=== PATIENT | female | born 1940 | race African-American/Black ===

== ENCOUNTER → 2020-08-22 | Outpatient (CLI) | payer OTHER ==
[~2020-08-22] MED LIST: ADULT LOW DOSE81 MG PO; AMLODIPINE BESYL5 MG PO; ENALAPRIL MALEAT5 M1 PO; LIPITOR40 MG PO; LIPITOR80 MG PO; LOPRESSOR25 PO; NEURONTIN600 MG PO; NITROGLYCERIN0.4 MG; NORCO 5-325 TA1 EACH PO; PROTONIX40 M2 PO; TRAMADOL 50 MG50 MG PO; VASOTEC 2.5MG2.5 MG PO; VICODIN 5-5001 EACH PO
== END ==
LOC: SJCVC 13:47
PROVIDERS: ATTEND Internal Medicine Cardiovascular Disease
DX: I25.10 Atherosclerotic heart disease of native coronary artery without angina pectoris (principal); I10 Essential (primary) hypertension; E78.00 Pure hypercholesterolemia, unspecified; K21.9 Gastro-esophageal reflux disease without esophagitis; R68.84 Jaw pain; Z95.1 Presence of aortocoronary bypass graft; Z79.899 Other long term (current) drug therapy

== ENCOUNTER → 2020-08-29 | Outpatient (CLI) | payer OTHER ==
--- NOTE | 2020-08-30 10:16 | CARDNUC ---
[facility] [address] [place] [address] CARDIAC NUCLEAR IMAGING REPORT Name: COLLEEN PEREZ Inés Room #: REG [facility]#: [id number] Admission: 08/29/20 Attend Phys: Hiram Holden MD Discharge: Date of : 38 Report #: [id number] THIS REPORT FOR: cc: Keanu Haque Steven F. DO Park, Jin S. MD Park, Jin S. MD ~ THIS REPORT FOR: //name// Sex/Age : F/79Y Height/Weight : 165.0cm/73.5kg Patient Name : COLLEEN PEREZ Study Date : 2020-08-29 BSA : 1.81? Requesting Name : [id number] [facility] Date of : 1940 Request Doctor : HIRAM HOLDEN Department : RAD --< Approved Report > Imaging Protocol: Stress Tl201/Rest Tl201 Study performed: 08/29/2020 11:00:00 Indication: CAD Patient Location: Out-Patient Stress Tech: LATASHA Briseno Stress Nurse: Jolynn Ratliff RN, May Irby RN NM Tech:LATASHA Briseno Ht: 5 ft 5 in Wt: 162 lbs BSA: 1.81 m2 HR: 74 bpm BP: 149/71 mmHg BMI: 26.95 Rhythm: Sinus Rhythm Medical History Medical History: Hyperlipidemia, HTN, CAD Medications: Aspirin, Coreg, Norvasc, Lipitor, Vasotec Allergies: No known drug allergies Cardiac Risk Factors: Age 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 Pretest Chest Pain Characteristics: No chest pain Physical Disabilities: S/P Stroke Meds Held (24 hrs): Coreg Resting Data [facility] [address] [address] CARDIAC NUCLEAR IMAGING REPORT Name: COLLEEN PEREZ Room #: REG [facility]#: [id number] Admission: 08/29/20 Attend Phys: Hiram Holden MD Discharge: Date of : 38 Report #: [id number] Time of rest imagin Date: 08/29/2020 Pharmacologic Stress Pharmacologic stress test was performed by injecting Regadenoson 0.4 mg IV push over 10-15 seconds immediately followed by the intravenous injection of 2.56 mCi of Thallium. Time of stress injection: 1210 Date: 08/29/2020 Administration Route: IV Administration Site: Right Arm Gated Stress SPECT was performed 10 minutes after stress injection. The images were gated to evaluate regional wall motion and calculate left ventricular ejection fraction. Stress Test Details Stress Test: Pharmacologic stress testing performed using 0.4 mg of regadenoson per 5 mL given IV over 10 seconds. Reason for pharmacologic stress test: physical limitation, ambulates with a walker. HR Max Heart Rate (APMHR): 140 bpm Resting HR: 74 bpm Target HR (85% APMHR): 119 bpm Max HR Achieved: 92 bpm % of APMHR: 65 Recovery HR: 85 bpm BP Resting BP: 149/71 mmHg Max BP: 156/66 mmHg Recovery BP: 14/60 mmHg ECG Resting ECG: Sinus Rhythm Stress ECG: Sinus Rhythm ST Change: Non-ischemic Arrhythmia: PVC's Recovery ECG: Sinus Rhythm Clinical Reason for Termination: Completed protocol Stress Symptoms: Abdominal discomfort, Dyspnea, Headache Symptoms resolved with caffeine. Study Quality Study: Good Artifact: Mild Diaphragmatic artifact Study Data [facility] [address] [place] [address] CARDIAC NUCLEAR IMAGING REPORT Name: COLLEEN PEREZ Room #: REG [facility]#: [id number] Admission: 08/29/20 Attend Phys: Hiram Holden MD Discharge: Date of : 38 Report #: [id number] Post stress, the left ventricular ejection was 69%.. SSS: 0 SRS: 0 SDS: 0 Perfusion There is a small area of mildly reduced uptake in the apical segment of the inferior wall which is seen on the stress images as well as the resting images. This area thickens and moves normally and is most consistent with attenuation artifact. Wall Motion Normal left ventricular wall motion. Nuclear Conclusion ECG Findings: negative for ischemia Clinical Findings: non-diagnostic Nuclear Findings: negative for ischemia Exercise Capacity: not assessed Left Ventricular Function: normal Risk Study: low This study is of low probability for inducible ischemia or prior infarct. Normal global and segmental LV systolic function. Artifact: Mild Diaphragmatic artifact Electronically Approved : 08/30/2020 10:13:56 <ELECTRONICALLY SIGNED> By: Hiram Holden MD 09/22/20 [id number] Hiram Holden MD /CLAIR
== END ==
LOC: SJCVCIMAG 09:35
PROVIDERS: ATTEND Internal Medicine Cardiovascular Disease
DX: I25.10 Atherosclerotic heart disease of native coronary artery without angina pectoris (principal); I49.3 Ventricular premature depolarization; I10 Essential (primary) hypertension; E78.00 Pure hypercholesterolemia, unspecified; R60.9 Edema, unspecified; Z79.82 Long term (current) use of aspirin; Z79.899 Other long term (current) drug therapy

== ENCOUNTER → 2021-04-03 | Outpatient (CLI) | payer OTHER | LOC: SJCVC 11:08 | PROVIDERS: ATTEND Internal Medicine Cardiovascular Disease | DX: I45.10 Unspecified right bundle-branch block (principal); I25.10 Atherosclerotic heart disease of native coronary artery without angina pectoris; I10 Essential (primary) hypertension; E78.00 Pure hypercholesterolemia, unspecified; K21.9 Gastro-esophageal reflux disease without esophagitis; E78.5 Hyperlipidemia, unspecified; I73.9 Peripheral vascular disease, unspecified; Z79.82 Long term (current) use of aspirin; Z79.899 Other long term (current) drug therapy; Z95.1 Presence of aortocoronary bypass graft ==

== ENCOUNTER → 2021-10-03 | Outpatient (CLI) | payer OTHER | LOC: SJCVCIMAG 09:54 | PROVIDERS: ATTEND Internal Medicine Cardiovascular Disease | DX: I08.3 Combined rheumatic disorders of mitral, aortic and tricuspid valves (principal); I13.10 Hypertensive heart and chronic kidney disease without heart failure, with stage 1 through stage 4 chronic kidney disease, or unspecified chronic kidney disease; N18.9 Chronic kidney disease, unspecified; I25.10 Atherosclerotic heart disease of native coronary artery without angina pectoris; E78.00 Pure hypercholesterolemia, unspecified; I35.1 Nonrheumatic aortic (valve) insufficiency; K21.9 Gastro-esophageal reflux disease without esophagitis; E78.5 Hyperlipidemia, unspecified; Z79.82 Long term (current) use of aspirin; Z79.899 Other long term (current) drug therapy; Z95.1 Presence of aortocoronary bypass graft; Z82.49 Family history of ischemic heart disease and other diseases of the circulatory system ==